=== PATIENT | male | born 1960 | race Caucasian/White ===

== ENCOUNTER 2019-07-11 13:05 | Emergency (ER) | payer OTHER ==
[~2019-07-11] VITALS: Ht 185.4 cm; Wt 108.9 kg
[~2019-07-11 13:05] MED LIST: GLUCOPHAGE500 MG PO; VICODIN PO
[2019-07-11 13:35] LABS: BASOPHILS 1.2 % (0.0-2.0); EOSINOPHILS 2.2 % (0.0-3.0); HEMATOCRIT 50.4 % (42.0-52.0); HEMOGLOBIN 16.6 gm/dL (14.0-18.0); LYMPHOCYTES 34.5 % (24.0-44.0); MCH 31.2 pg (26.0-34.0); MCV 94.7 fL (80.0-100.0); MONOCYTES 4.2 % (1.0-8.0); PLATELET COUNT 180 thou/uL (150-400); POLYS 57.9 % (36.0-66.0); RBC 5.32 mil/uL (4.50-6.00); RDW 13.1 % (10.5-14.5)
[2019-07-11 13:36] LABS: URINE BILIRUBIN NEGATIVE (Negative); URINE BLOOD NEGATIVE (Negative); URINE CLARITY CLEAR; URINE COLOR YELLOW; URINE GLUCOSE-RANDOM* 3+ (Negative); URINE KETONES NEGATIVE (Negative); URINE LEUKOCYTES-REFLEX NEGATIVE (Negative); URINE NITRITE-REFLEX NEGATIVE (Negative); URINE PROTEIN (DIPSTICK) NEGATIVE (Negative); URINE UROBILINOGEN 0.2 E.U./dl (0.2-1.0)
[2019-07-11 13:48] LABS: CALCIUM 8.9 mg/dL (8.5-10.1); POTASSIUM 4.1 mmol/L (3.5-5.1)
[2019-07-11 13:54] LABS: ALBUMIN 3.7 g/dL (3.4-5.0); TOTAL BILIRUBIN 0.7 mg/dL (<0.1-1.0); TOTAL PROTEIN 7.4 g/dL (6.4-8.2)
[2019-07-11] MEDS ORDERED: ATORVASTATIN CA80 MG PO (14:49)
[2019-07-11] MEDS ORDERED: PLAVIX 75 MG TA75 MG PO (14:50)
[2019-07-11] MEDS ORDERED: METOPROLOL SUCC25 M1 PO (14:50)
[2019-07-11] MEDS ORDERED: LISINOPRIL10 MG PO (14:50)
[2019-07-11] MEDS ORDERED: ASA81BEC PO (14:51)
[2019-07-11] MEDS ORDERED: GLIPIZIDE XL5 MG PO (16:23)
[2019-07-11] MEDS ORDERED: LANTUS100 UNIT/M SUBQ (16:23)
[2019-07-11] MEDS ORDERED: GLUCOPHAGE1000 MG PO (16:23)
[2019-07-11 16:41] VITALS: BP 141/88
== END 2019-07-11 16:46 | disposition home or self-care (01) ==
LOC: ER 13:05
PROVIDERS: Nurse Practitioner Family
DX: E11.9 Type 2 diabetes mellitus without complications (principal); F17.210 Nicotine dependence, cigarettes, uncomplicated